=== PATIENT | male | born 1960 | race Caucasian/White ===

== ENCOUNTER 2016-12-12 06:07 | Day surgery (SDC) | payer MEDICARE ==
[2016-12-12] MEDS ORDERED: IV START KIT ONE (06:19)
[2016-12-12] MEDS ORDERED: LACTATED RINGERS 1,000 ML ONE (06:19)
[2016-12-12] MEDS ORDERED: PROPOFOL 40 ML IV ONE (07:03)
[2016-12-12 12:04] LABS: HELICOBACTER PYLORII DETECTION POSITIVE (NEGATIVE)
--- NOTE | 2016-12-14 13:31 | SURGPATH ---
[facility] [address] [place] [id number] Patient Name: LEONEL ELENA JR MR#: [id number] : 1960 Gender: M Specimen #: [id number] Collected: 12/12/2016 Received: 12/13/2016 Reported: 12/14/2016 Submitting Phys: ANKITA JANE Copy To Phys: [facility] ROYA MORENO Clinical History / Pre-Operative Diagnosis: LLQ ABDOMINAL PAIN Specimen Source / Surgical Procedure Performed: #1-DUODENAL BIOPSY; #2-ANTRAL BIOPSY; #3-GE junction biopsy; #4-random left colon biopsies Interpretation: 1. DUODENAL BIOPSY: - NO SIGNIFICANT PATHOLOGIC ABNORMALITIES IDENTIFIED. 2. ANTRAL BIOPSY: - ACTIVE, CHRONIC ANTRAL GASTRITIS. - ORGANISMS MORPHOLOGICALLY CONSISTENT WITH HELICOBACTER IDENTIFIED. 3. GE JUNCTION BIOPSY: - NO SIGNIFICANT PATHOLOGIC ABNORMALITIES IDENTIFIED. 4. RANDOM LEFT COLON BIOPSY: - NO SIGNIFICANT PATHOLOGIC ABNORMALITIES IDENTIFIED. Electronically Signed Out Liyah Erwin M.D. Gross Description: #1 The specimen is received in a formalin filled container labeled with the patient's name and "duodenal biopsy". Two rowan biopsies are 0.3 and 0.4 cm. Totally embedded in cassette #1. #2 The specimen is received in a formalin filled container labeled with the patient's name and "antral biopsy". Two nguyen-rowan biopsies are 0.4 and 0.5 cm. Totally embedded in cassette #2. #3 The specimen is received in a formalin filled container labeled with the patient's name and "GE junction biopsy". Three nguyen biopsies are 0.2, 0.3 and 0.5 cm. Totally embedded in cassette #3. #4 The specimen is received in a formalin filled container labeled with the patient's name and "random left colon biopsy". Six rowan biopsies are 0.3-0.4 cm. Totally embedded in cassette #4. Lacey Burdick Microscopic Description: 1. Sections of the duodenal biopsy show benign duodenal mucosa with no significant pathologic changes. 2. Sections of the antral biopsy show increased chronic and acute inflammation of the lamina propria with associated mucosal congestion. There is no evidence of intestinal metaplasia or mucosal atrophy. Organisms morphologically consistent with Helicobacter are identified in the overlying mucus layer and within some gastric pits. 3. Sections of the GE junction biopsy show fragments of benign squamous mucosa with no significant pathologic changes. 4. Sections of the random left colon biopsy show fragments of benign colonic mucosa with no significant pathologic changes. 1: 41366 2: 79892 3: 96618 4: 53696 K29.00 B96.81 R10.30
== END 2016-12-12 08:20 | disposition home or self-care (01) ==
LOC: SDC 06:07
PROVIDERS: ATTEND Surgery
PROC: 0DB98ZX Excision of Duodenum, Via Natural or Artificial Opening Endoscopic, Diagnostic (ICD-10-PCS; principal; 2016-12-12)
PROC: 0DB68ZX Excision of Stomach, Via Natural or Artificial Opening Endoscopic, Diagnostic (ICD-10-PCS; 2016-12-12)
PROC: 0DB58ZX Excision of Esophagus, Via Natural or Artificial Opening Endoscopic, Diagnostic (ICD-10-PCS; 2016-12-12)
DX: K44.9 Diaphragmatic hernia without obstruction or gangrene (principal); K29.50 Unspecified chronic gastritis without bleeding; E66.9 Obesity, unspecified; Z68.34 Body mass index [BMI] 34.0-34.9, adult
CPT/HCPCS: 43239; 87081; J7120

== ENCOUNTER 2017-02-05 09:05 | Day surgery (SDC) | payer MEDICARE ==
[2017-02-05] MEDS ORDERED: LACTATED RINGERS 1,000 ML ONE (09:20)
[2017-02-05] MEDS ORDERED: IV START KIT ONE (09:20)
[2017-02-05] MEDS ORDERED: CEFAZOLIN SODIUM 2 GRAM PREMIX 100 ML IV ONE (09:21)
[2017-02-05 09:54] LABS: HEMATOCRIT 41.7 % (32.0-52.0); HEMOGLOBIN 14.3 gm/l (14.0-18.0); MEAN CELL VOLUME 88.3 fl (80.0-94.0); MEAN CORPUSCULAR HEMOGLOBIN 30.3 pg (27.0-31.0); MEAN CORPUSCULAR HGB CONC 34.3 g/dl (33.0-37.0); RED CELL DISTRIBUTION WIDTH 12.1 % (11.5-14.5)
[2017-02-05 10:13] LABS: ALB/GLOB RATIO 1.5 (>1.0); ALBUMIN 4.4 gm/dL (3.5-5.7); CALCIUM 9.1 mg/dL (8.6-10.3)
[2017-02-05] MEDS ORDERED: CEFAZOLIN SODIUM 2 GRAM PREMIX 100 ML IV PRN (10:15)
[2017-02-05] MEDS ORDERED: PROPOFOL 20 ML IV ONE (12:32)
[2017-02-05] MEDS ORDERED: FENTANYL 250 MCG/5 ML AMP ONE (12:32)
[2017-02-05] MEDS ORDERED: LIDOCAINE 2% (MULTI DOSE) 10 ML VIAL ONE (12:32)
[2017-02-05] MEDS ORDERED: MIDAZOLAM HCL 1 MG/ML 2ML VIAL ONE (12:32)
[2017-02-05] MEDS ORDERED: BUPIVACAINE 0.5% (PRES FREE) 30 ML VIAL ONE (13:11)
[2017-02-05] MEDS ORDERED: SODIUM CHLORIDE 0.9% FLUSH 10 ML ONE (13:11)
[2017-02-05] MEDS ORDERED: CEFAZOLIN SODIUM 1,000 MG VIAL ONE (13:11)
[2017-02-05] MEDS ORDERED: HYDROMORPHONE HCL 1 MG/ML SYRINGE IV PRN (14:07)
[2017-02-05] MEDS ORDERED: FENTANYL 100 MCG/2 ML VIAL IV PRN (14:07)
[2017-02-05] MEDS ORDERED: HYDRALAZINE HCL 20 MG/1 ML VIAL IV PRN (14:07)
[2017-02-05] MEDS ORDERED: MEPERIDINE 25 MG/ML SYRINGE IV PRN (14:07)
[2017-02-05] MEDS ORDERED: PROMETHAZINE HCL 25 MG/ML VIAL IM PRN (14:07)
[2017-02-05] MEDS ORDERED: LABETALOL HCL 5 MG/ML 20ML VIAL IV PRN (14:07)
[2017-02-05] MEDS ORDERED: ONDANSETRON 4 MG/2ML 2 ML VIAL IV PRN ×2 (14:07→15:58)
[2017-02-05] MEDS ORDERED: NALOXONE HCL 0.4 MG/ML VIAL IV PRN (14:07)
[2017-02-05] MEDS ORDERED: ATROPINE SULFATE 0.4 MG/1 ML VIAL IV PRN (14:07)
[2017-02-05] MEDS ORDERED: LACTATED RINGERS 1,000 ML IV SCH (14:15)
[2017-02-05] MEDS ORDERED: KETOROLAC TROMETHAMINE 30 MG/ML 1 ML VIAL ONE ×2 (15:11→15:12)
[2017-02-05] MEDS ORDERED: OXYCODONE HCL 5 MG TABLET PO PRN (15:58)
[2017-02-05] MEDS ORDERED: KETOROLAC TROMETHAMINE 30 MG/ML 1 ML VIAL IV PRN (15:58)
[2017-02-05] MEDS ORDERED: MORPHINE SULFATE 2 MG/ML SYRINGE IV PRN (15:58)
[2017-02-05] MEDS ORDERED: ACETAMINOPHEN 325 MG TABLET PO PRN (15:58)
[2017-02-05] MEDS ORDERED: OXYCODONE HCL 5 MG TABLET ONE (16:32)
[2017-02-05] MEDS ORDERED: ONDANSETRON 4 MG/2ML 2 ML VIAL ONE (16:32)
--- NOTE | 2017-02-06 06:32 | OP ---
Osmani De La Paz Jr. [id number] DATE OF PROCEDURE: 02/05/2017 PREOPERATIVE DIAGNOSIS: Recurrent right inguinal hernia, left inguinal hernia. POSTOPERATIVE DIAGNOSIS: Recurrent right inguinal hernia, left inguinal hernia. PROCEDURE: Repair of right inguinal hernia with mesh, plug, and patch, repair of left inguinal hernia with mesh, plug, and patch. SURGEON: Torsten Márquez MD. SHOE PARTS CASER: Levy. ANESTHESIA: Kobzeff, General. INDICATION: A 56-year-old male who has left sided abdominal pain. He has a CAT scan showing bilateral inguinal hernia's. He has had a previous right inguinal hernia repair with mesh by Dr. Caraballo. He presents now for elective repair of both sides. DESCRIPTION: With informed consent he was taken to the operating room where he was laid supine on the operating room table. General anesthesia was administered. The abdomen and groin area were prepped and draped in a sterile fashion. We started on the right side. I anesthetized his prior scar, this was incised with a knife, we did extend it out laterally. Electrocautery was used to divide the subcutaneous fat. We dissected down to the external oblique and went out laterally to get to unscarred tissue. From there I worked medially lifting the subcutaneous fat from the external oblique. The external oblique was open with Metzenbaum scissors, this was extended out laterally. There was quite a bit of inflammation present. Eventually, I was able to identify the cord structures. Within that there was a large lipomatous mass. It did appear that there was a hernia defect medial to the cord structures. I dissected the lipomatous fat away and then filled the defect with a medium mesh plug. This occurred at multiple points with some 2-0 Vicryl. The medial aspect of the hernia repair appeared intact. I chose to use a flat piece of mesh to extend this out laterally. A slit was cut on the medial aspect and then it was placed up beneath the external oblique. The wound was irrigated. We appeared to have adequate hemostasis. The reminants of the external oblique were reapproximated with a 2-0 Vicryl, it was quite attenuated. Patrick's fascia reapproximated with 3-0 Vicryl. The skin was closed with a running subcuticular 4-0 Monocryl. Local anesthetic was administered in the subcutaneous tissues on the left side. We made a mirror image of the incision not quite as lengthy, however. Electrocautery was used to divide the subcutaneous fat and patrick's fascia. We dissected down to the external oblique, this was opened with a knife and Metzenbaum scissors in a fibrous splitting technique. Cord structures were encircled at the level of the pubic tubercle with a Cuervo drain. There was a moderate amount of lipomatous fat within the cord structures, this was dissected free to the internal ring, ligated, and excised. No clear indirect sac was seen. There did appear to be a direct defect present. I did score this with electrocautery and drained into a preperitoneal plane. An extra mesh plug was then placed on the floor of the canal. This was secured circumferentially with some 2-0 Vicryl's. A flat piece of mesh was then placed across the floor of the canal. The medial aspect overlapped the pubic tubercle. A slit was cut laterally, this was placed around the cord structures and secured laterally with 2-0 Vicryl. This was placed beneath the external oblique. The wound was irrigated. We appeared to have adequate hemostasis. The external oblique was reapproximated with a running 2-0 Vicryl. Patrick's fascia reapproximated with 3-0 Vicryl. The skin was closed with a running subcuticular 4-0 Monocryl. Mastisol and Steri-Strips were placed at both sides. Sterile dressings were applied. He tolerated the procedure and was taken to the recovery room in stable condition. Note was made that needle, instrument, and lap counts were reported as correct at the time of closure. JOB: [id number] CC: Dr. Clovis Gagnon
== END 2017-02-05 17:36 | disposition home or self-care (01) ==
LOC: SDC 09:05
PROVIDERS: ATTEND Surgery
PROC: 0YUA0JZ Supplement Bilateral Inguinal Region with Synthetic Substitute, Open Approach (ICD-10-PCS; principal; 2017-02-05)
DX: K40.91 Unilateral inguinal hernia, without obstruction or gangrene, recurrent (principal); K40.90 Unilateral inguinal hernia, without obstruction or gangrene, not specified as recurrent; E66.9 Obesity, unspecified; Z68.33 Body mass index [BMI] 33.0-33.9, adult; Z86.19 Personal history of other infectious and parasitic diseases; R49.9 Unspecified voice and resonance disorder; Z88.6 Allergy status to analgesic agent